=== PATIENT | female | born 1930 | race Caucasian/White ===

== ENCOUNTER → 2019-01-01 | Outpatient (CLI) | payer MEDICARE, BC | LOC: RAD 07:55 | DX: M19.011 Primary osteoarthritis, right shoulder (principal); M19.012 Primary osteoarthritis, left shoulder; M47.812 Spondylosis without myelopathy or radiculopathy, cervical region ==

== ENCOUNTER → 2019-02-27 | Outpatient (CLI) | payer MEDICARE, BC | LOC: LAB 11:24 | DX: R30.0 Dysuria (principal) ==

== ENCOUNTER → 2019-09-29 | Outpatient (CLI) | payer MEDICARE, BC | LOC: LAB 15:21 | DX: R30.0 Dysuria (principal); R35.0 Frequency of micturition ==

== ENCOUNTER 2019-10-05 19:21 | Emergency (ER) | payer MEDICARE, BC ==
[2019-10-05] MEDS ORDERED: LEVOTHYROXINE100 MC1 PO (19:35)
[2019-10-05] MEDS ORDERED: NORVASC 5MG5 MG/TAB PO (19:36)
[2019-10-05] MEDS ORDERED: FISH OIL1 IU PO (19:36)
[2019-10-05] MEDS ORDERED: BISOPROLOL FUMA1 TAB PO (19:36)
[2019-10-05 20:40] LABS: URINE APPEARANCE CLEAR; URINE BILIRUBIN NEGATIVE (NEGATIVE); URINE BLOOD NEGATIVE (NEGATIVE); URINE COLOR ORANGE; URINE GLUCOSE NEGATIVE (NEGATIVE); URINE KETONE NEGATIVE (NEGATIVE); URINE LEUKOCYTE ESTERASE NEGATIVE (NEGATIVE); URINE MUCUS PRESENT (NOT PRESENT); URINE NITRATE NEGATIVE (NEGATIVE); URINE PROTEIN(semi-quant) NEGATIVE (NEGATIVE); URINE UROBILINOGEN NORMAL (NORMAL)
[2019-10-05 20:42] LABS: POTASSIUM 4.5 mmol/L (3.5-5.1)
[2019-10-05 20:43] LABS: CALCIUM 9.2 mg/dL (8.3-10.5)
[2019-10-05 21:18] VITALS: BP 168/98
== END 2019-10-05 21:18 | disposition home or self-care (01) ==
LOC: ED 19:21
PROVIDERS: Family Medicine
DX: R30.0 Dysuria (principal); I10 Essential (primary) hypertension; F17.210 Nicotine dependence, cigarettes, uncomplicated; Z90.710 Acquired absence of both cervix and uterus

== ENCOUNTER → 2020-01-23 | Outpatient (CLI) | payer MEDICARE, BC ==
[~2020-01-23] MED LIST: BISOPROLOL FUMA1 TAB PO; FISH OIL1 IU PO; LEVOTHYROXINE100 MC1 PO; NORVASC 5MG5 MG/TAB PO
== END ==
LOC: RAD 09:00
DX: Z13.6 Encounter for screening for cardiovascular disorders (principal); I71.4 Abdominal aortic aneurysm, without rupture